=== PATIENT | male | born 1960 | race Caucasian/White ===

== ENCOUNTER 2022-02-07 16:13 | Emergency (ER) | payer BC ==
[2022-02-07] MEDS ORDERED: EPINEPHrine 1 MG/ML SDV ONE (16:22)
[2022-02-07] MEDS ORDERED: methylPREDNISolone Sodium Succinate 125 MG/2 ML SDV IVPUSH ONE (16:23)
[2022-02-07] MEDS ORDERED: EPINEPHrine 1 MG/ML SDV IM ONE ×2 (16:23→17:16)
[2022-02-07] MEDS ORDERED: Sodium Chloride 0.9% 1,000 ML IV SCH (16:30)
[2022-02-07] MEDS ORDERED: Famotidine 20 MG/2 ML SDV IVPUSH ONE (17:16)
[2022-02-07] MEDS ORDERED: diphenhydrAMINE 25 MG Cap PO ONE (17:23)
[2022-02-07] MEDS ORDERED: EPINEPHrine 1 MG/ML SDV SUBCUT ONE (18:31)
[2022-02-07] MEDS ORDERED: Famotidine 20 MG Tab PO ONE (18:31)
[2022-02-07 20:45] LABS: ESTIMATED GFR 63 mL/min (>60)
== END 2022-02-07 21:24 | disposition home or self-care (01) ==
LOC: JP.ED 16:13
DX: T78.2XXA Anaphylactic shock, unspecified, initial encounter (principal); Z88.8 Allergy status to other drugs, medicaments and biological substances
CPT/HCPCS: 36415; 80053; 84443; 85025; 85651; 86140; 93005; 93010; 96361; 96372; 96374; 96375; 99283; A9270; J0171; J2930; J3490; J7030